=== PATIENT | female | born 1990 | race Caucasian/White ===

== ENCOUNTER → 2018-07-29 | Emergency (ER) | payer OTHER ==
[~2018-07-29] VITALS: Ht 165.1 cm; Wt 72.7 kg
[2018-07-29 12:06] VITALS: PULSE 99; TEMP 98.4
== END ==
LOC: COL.ER 12:04
DX: S61.012A Laceration without foreign body of left thumb without damage to nail, initial encounter (principal); F17.210 Nicotine dependence, cigarettes, uncomplicated; Z23 Encounter for immunization; W26.0XXA Contact with knife, initial encounter; Y92.009 Unspecified place in unspecified non-institutional (private) residence as the place of occurrence of the external cause

== ENCOUNTER 2018-11-14 21:05 | Emergency (ER) | payer OTHER ==
[~2018-11-14] VITALS: Ht 165.1 cm; Wt 77.3 kg
[2018-11-14 21:08] VITALS: TEMP 98.3
[2018-11-14 23:48] LABS: BASO # 0.1 (0.0-0.2); BASO % 0.8 % (0.0-2.0); EOS # 0.1 (0.0-0.7); GRAN # 4.3 (1.4-6.5); GRAN % 59.7 % (42.2-75.2); HEMATOCRIT 42.6 % (37.0-47.0); HEMOGLOBIN 14.7 g/dl (12.5-16.0); LYMPH # 2.3 (1.2-3.4); LYMPH % 31.6 % (20.0-51.0); MEAN CELL VOLUME 91 fl (80.0-100.0); MEAN CORPUSCULAR HEMOGLOBIN 31 pg (27.0-31.0); MEAN CORPUSCULAR HGB CONC 35 g/dl (33.0-37.0); MEAN PLATELET VOLUME 8.9 fl (7.4-10.4); MONO # 0.5 (0.1-0.6); MONO % 6.8 % (1.7-9.3); PLATELET COUNT 281 K/mm3 (130-400); RED BLOOD COUNT 4.68 M/mm3 (4.10-5.30)
[2018-11-14 23:58] LABS: ALBUMIN 4.5 gm/dL (3.5-5.0); BILIRUBIN,TOTAL 1.3 mg/dL (0.0-1.0); CALCIUM 9.4 mg/dL (8.4-10.2); CREATININE, serum 0.74 mg/dL (0.52-1.25); POTASSIUM 3.6 mmol/L (3.4-5.0); TOTAL PROTEIN 7.9 gm/dL (6.4-8.2)
[2018-11-15 00:36] VITALS: BP 114/67; PULSE 82
== END 2018-11-15 00:37 | disposition home or self-care (01) ==
LOC: COL.ER 21:05
PROVIDERS: Emergency Medicine
DX: R25.2 Cramp and spasm (principal); R29.0 Tetany; F17.210 Nicotine dependence, cigarettes, uncomplicated

== ENCOUNTER 2021-07-19 06:20 | Inpatient (IN) | payer OTHER ==
[~2021-07-19] VITALS: Ht 165.1 cm; Wt 94.5 kg
[2021-07-19] VITALS (35 sets, daily range): BP systolic 94–134; BP diastolic 53–83; PULSE 70–100; TEMP 97.9–98.7
--- NOTE | 2021-07-19 06:30 | NUR ---
0630-G2 40.[address] Mtz ambulatory to LR 5 for induction of labor. Reports having had some contractions this morning in route to the hospital. Assisted into gown, placed on EFM and Assessment and consents reviweed and signed. 0700-INT to left forearm and blood collected and sent to lab as ordered. SVE /-3, intact. Dr. Mtz updated. See physician notification. 0711-Patient off EFM to ambulate per MD order. 0750-Patient back on EFM. 0805-Pitocin started per MD order, see EMAR. 0815-Dr. Mtz to patient room to review plan of care. No new orders.
[2021-07-19] MEDS ORDERED: VITAMINC1000TA PO (06:54)
[2021-07-19] MEDS ORDERED: PRENATAL (06:55)
[2021-07-19] MEDS ORDERED: MAGNESIUM250 M1 PO (06:55)
[2021-07-19] MEDS ORDERED: PEPCID 20MG TAB20 MG PO (06:56)
[2021-07-19 07:22] LABS: BASO # 0.1 K/mm3 (0.0-0.2); BASO % 0.5 % (0.0-2.0); EOS # 0.1 K/mm3 (0.0-0.7); EOS % 1.4 % (0-4.0); GRAN # 5.9 K/mm3 (1.4-6.5); GRAN % 64.6 % (42.2-75.2); HEMATOCRIT 38.6 % (37.0-47.0); HEMOGLOBIN 13.2 g/dl (12.5-16.0); LYMPH # 2.5 K/mm3 (1.2-3.4); LYMPH % 27.1 % (20.0-51.0); MEAN CELL VOLUME 93 fl (80.0-100.0); MEAN CORPUSCULAR HEMOGLOBIN 32 pg (27.0-31.0); MEAN CORPUSCULAR HGB CONC 34 g/dl (33.0-37.0); MEAN PLATELET VOLUME 9.3 fl (7.4-10.4); MONO # 0.5 K/mm3 (0.1-0.6); MONO % 5.4 % (1.7-9.3); PLATELET COUNT 242 K/mm3 (130-400); RED BLOOD COUNT 4.16 M/mm3 (4.10-5.30); REDCELL DISTRIBUTION WIDTH-CV 12.9 % (11.5-14.5)
--- NOTE | 2021-07-19 10:15 | NUR ---
1015-Patient to BB. Difficulty tracing due to maternal positioning. RN at bedside frequently readjusting EFM and TOCO.
--- NOTE | 2021-07-19 13:50 | NUR ---
1350- Roles to unit reviews FHR monitor. SVE by /-2 AROM clear fluid noted. 1410-Patient stands at bedside breathing and feeling increased pressure. 1419-Updated MD on patients increasing discomfort and need to breath and moan through contractions. Attempted SVE but patient did not tolerate exam, small amount of anterior cervix left. MD requested. 1427- Roles to room. 1432-Dr. Mtz checks patient and encoaurges patient to push. Moves vertex well. 1434-Spontaneous delivery of head immediately followed by infant body. Viable female infant to mothers abdomen. Cord clamped x2 and cut by father of infant. Care of assumed by MARLENY Mijares. Apgars 8/9. 1439-Spontaneous delivery of intact placenta by . Fundal massage firm. Lochia WNL. Pitocin bolus started per orders. 2nd degree repair by MD. Emmie care provided. Updated on plan of care and safety. 1600-Patient up to bathroom, unable to void, emmie care provided. Ambulates with steady gait. IV to INT.
[2021-07-20 00:12] VITALS: BP 113/64; PULSE 83; TEMP 98.5
[2021-07-20 03:19] VITALS: BP 106/63; PULSE 80; TEMP 97.9
[2021-07-20 08:38] VITALS: BP 105/68; PULSE 83; TEMP 97.7
[2021-07-20] MEDS ORDERED: IBU800 M1 PO (08:54)
[2021-07-20 12:36] VITALS: BP 114/65; PULSE 70; TEMP 97.7
--- NOTE | 2021-07-20 12:42 | NUR ---
Health Nurse offered congrats to patient and spouse.
== END 2021-07-20 18:00 | disposition home or self-care (01) | DRG 807 ==
LOC: LDR 06:20 → OB 07:24
PROVIDERS: ADMIT Obstetrics & Gynecology
PROC: 10E0XZZ Delivery of Products of Conception, External Approach (ICD-10-PCS; principal; 2021-07-19)
PROC: 0KQM0ZZ Repair Perineum Muscle, Open Approach (ICD-10-PCS; 2021-07-19)
PROC: 10907ZC Drainage of Amniotic Fluid, Therapeutic from Products of Conception, Via Natural or Artificial Opening (ICD-10-PCS; 2021-07-19)
PROC: 3E033VJ Introduction of Other Hormone into Peripheral Vein, Percutaneous Approach (ICD-10-PCS; 2021-07-19)
DX: O48.0 Post-term pregnancy (principal); Z37.0 Single live birth; O70.1 Second degree perineal laceration during delivery; Z3A.40 40 weeks gestation of pregnancy
CPT/HCPCS: J2590; J7120